=== PATIENT | male | born 1940 | race Caucasian/White ===

== ENCOUNTER 2021-11-15 19:06 | Emergency (ER) | payer BC, OTHER, SELFPAY ==
[2021-11-15] VITALS (11 sets, daily range): BP systolic 128–186; BP diastolic 60–92; PULSE 53–85; RESP 19–20; TEMP 36.8–37.8; O2SAT 91–98; BMI 31.1
--- NOTE | 2021-11-15 19:12 | [facility].EDGENADL ---
ED Disposition Condition on Discharge: Good - Critical Care Critical Care Time: No <Heath Chavarria - Last Filed: 11/15/21 19:31> <Yuniel Ocampo - Last Filed: 11/15/21 23:51> Clinical Impression: Gastroenteritis Disposition: Home, Self-Care Instructions: DI for Diarrhea and Traveler's Diarrhea -- Adult Additional Instructions: fluids and see pcp for follow up Referrals: Provider,Referral, MD [Primary Care Provider] - Attestation: On 11/15/21, the high probability of a clinically significant, sudden or life threatening deterioration of the following system(s) required my full and direct attention, intervention and personal management. The time I documented below is in addition to time spent performing reported procedures but includes the following listed in this critical care notation. Medical Decision Making - Medical Records Medical records reviewed: Yes: I reviewed the patient's medical records. - Dereck Inquiry Pt receiving controlled substance: No - Lab Data Result diagrams: 11/15/21 19:10 <Heath Chavarria - Last Filed: 11/15/21 19:31> - Lab Data Lab results reviewed: Yes: I reviewed the patient's lab results. Result diagrams: 11/15/21 19:10 11/15/21 19:10 <Yuniel Ocampo - Last Filed: 11/15/21 23:51> Vital Signs: 11/15/21 19:06 11/15/21 19:31 11/15/21 20:00 Temperature 100.1 F H Temperature Source Oral Pulse Rate 62 53 L Pulse Rate [Right] 61 Respiratory Rate 20 Blood Pressure 132/74 128/60 Blood Pressure [Right Arm] 186/92 H Blood Pressure Mean [Right Arm] 123 02 Sat by Pulse Oximetry 96 91 L 92 L Oxygen Delivery Method Room Air Room Air 11/15/21 21:00 11/15/21 21:30 11/15/21 22:00 Temperature Temperature Source Pulse Rate 58 L 64 58 L Pulse Rate [Right] Respiratory Rate Blood Pressure 152/72 H 147/70 H 145/64 H Blood Pressure [Right Arm] Blood Pressure Mean [Right Arm] 02 Sat by Pulse Oximetry 95 93 L 95 Oxygen Delivery Method Room Air - Lab Data Lab Results 11/15/21 19:10: WBC 9.7, RBC 5.12, Hgb 15.8, Hct 46.7, MCV 91.3, MCH 30.8, MCHC 33.7, RDW 14.4, Plt Count 178, MPV 9.6, Neut % (Auto) 89.2 H, Lymph % (Auto) 3.0 L, [place] % (Auto) 6.5, Eos % (Auto) 0.9, Baso % (Auto) 0.4, Neut # (Auto) 8.7 H, Lymph # (Auto) 0.3 L, [place] # (Auto) 0.6, Eos # (Auto) 0.1, Baso # (Auto) 0.0, Total Counted 100, Neutrophils % (Manual) 85 H, Lymphocytes % (Manual) 9 L, Monocytes % (Manual) 6, Platelet Estimate Normal, Hypochromasia 2+, Anisocytosis 1+ 11/15/21 19:10: Sodium 136, Potassium 3.6, Chloride 104, Carbon Dioxide 24, Anion Gap 11.6, BUN 21 H, Creatinine 1.60 H, Estimated Creat Clear 55, Estimated GFR 42 L, Est GFR ( Amer) 51 L, Glucose 129 H, Calcium 7.8 L, Total Bilirubin 0.9, AST 52, ALT 30, Alkaline Phosphatase 121, Total Protein 6.7, Albumin 3.9, Globulin 2.8, Albumin/Globulin Ratio 1.4 11/15/21 19:10: SARS-CoV-2 (PCR) Not detected, Influenza A Untype (PCR) Not detected, Influenza Type B (PCR) Not detected 11/15/21 19:10: Troponin I 0.04 H 11/15/21 20:26: Urine Color Yellow, Urine Appearance Clear, Urine pH 5.5, Ur Specific [place] >= 1.030, Urine Protein 1+, Urine Glucose (UA) Negative, Urine Ketones Negative, Urine Blood 2+, Urine Nitrate Negative, Urine Bilirubin Negative, Urine Urobilinogen 0.2, Ur Leukocyte Esterase Negative, Urine RBC 3-5, Urine WBC Occasional, Ur Squamous Epith Cells Occasional, Urine Bacteria None 11/15/21 22:44: Troponin I 0.06 H Orders (Tests/Meds): ED MEDICATIONS Generic Name Dose Route Start Last Admin Trade Name Freq PRN Reason Stop Dose Admin Sodium Chloride 1,000 mls @ 999 mls/hr 11/15/21 19:15 11/15/21 19:37 Sod Chlor 0.9% 1000ml Bag IV 11/15/21 20:15 999 mls/hr .Q1H1M CASEY Administration Sodium Chloride 1,000 mls @ 999 mls/hr 11/15/21 22:15 11/15/21 22:15 Sod Chlor 0.9% 1000ml Bag IV 11/15/21 23:15 999 mls/hr .Q1H1M CASEY Administration Discontinued Medications
[2021-11-15 19:19] LABS: Basophils % 0.4 % (0.1-2.0); Eosinophils # 0.1 K/mm3 (0.0-0.4); Eosinophils % 0.9 % (0.1-12.0); Hematocrit 46.7 % (42.0-52.0); Hemoglobin 15.8 g/dL (14.1-18.0); Lymphocytes # 0.3 K/mm3 (0.7-4.5); Mean Corpuscular HGB Conc 33.7 g/dL (31.8-35.4); Mean Corpuscular Hemoglobin 30.8 pg (27.0-31.2); Mean Corpuscular Volume 91.3 fl (80-94); Mean Platelet Volume 9.6 fl (7.4-10.4); Monocytes # 0.6 K/mm3 (0.1-1.0); Monocytes % 6.5 % (1.7-9.3); Neutrophils # 8.7 K/mm3 (1.8-7.8); Neutrophils % 89.2 % (37.0-80.0); Platelet Count 178 K/mm3 (142-424); Red Blood Count 5.12 M/mm3 (4.60-6.20); Red Cell Distribution Width 14.4 % (11.5-17.5); White Blood Count 9.7 K/mm3 (4.8-10.8)
[2021-11-15 19:27] LABS: MANUAL DIFFERENTIAL MANUAL DIFFERENTIAL (MANUAL DIFF)
[2021-11-15 19:33] LABS: Chloride 104 mmol/L (98-107)
[2021-11-15 19:34] LABS: Potassium 3.6 mmoL/L (3.5-5.1); Sodium 136 mmol/L (136-145)
[2021-11-15 19:36] LABS: Alanine Aminotransferase 30 U/L (12-78); Albumin Level 3.9 g/dl (3.5-5.0); Albumin/Globulin Ratio 1.4 (1.1-1.8); Alkaline Phosphatase 121 U/L (38-126); Aspartate Amino Transferase 52 U/L (17-59); Bilirubin,Total 0.9 mg/dl (0.2-1.3); Blood Urea Nitrogen 21 mg/dl (9-20); Creatinine Clearance Estimated 55 mL/min (50-200); Estimated Glomerular Filt Rate 42 ml/min (>60); GFR (African American) 51 ML/MIN (>60); Globulin 2.8 g/dL (1.3-3.2); Total Protein,Serum 6.7 g/dl (6.3-8.2)
[2021-11-15 19:37] LABS: Anion Gap 11.6 mEq/L (5-15); Calcium 7.8 mg/dl (8.4-10.2); Carbon Dioxide 24 mmol/L (22.0-30.0); Glucose 129 mg/dl (74-100)
[2021-11-15 19:59] LABS: Anisocytosis 1+; Hypochromasia 2+; Lymphocytes % 9 % (10-50); Monocytes % 6 % (2-9); Neutrophils % 85 % (42-76); Platelet Estimate Normal; Total Cells Counted 100
[2021-11-15 20:01] LABS: Coronavirus 19, PCR Not Detected (NotDetected); Influenza A, PCR Not Detected (NotDetected); Influenza B, PCR Not Detected (NotDetected)
[2021-11-15 20:29] LABS: Microscopic, Urine URINE MICROSCOPIC (MICROSCOPIC)
[2021-11-15 20:41] LABS: Troponin I 0.04 ng/ml (0.00-0.034)
--- NOTE | 2021-11-15 20:50 | PC.NURSE ---
Pt able to ambulate to bathroom
[2021-11-15 21:14] LABS: Appearance,Urine CLEAR (Clear); Bilirubin,Urine Negative (Negative); Blood, Urine 2+ (Negative); Color,Urine YELLOW (Yellow); Glucose,Urine (UA) Negative (Negative); Ketones,Urine Negative (Negative); Leukocyte Esterase,Urine Negative (Negative); Nitrate,Urine Negative (Negative); PH,Urine 5.5 (5.0-8.5); Protein,Urine 1+ (Negative); Specific Gravity, Urine >= 1.030 (1.005-1.030); Urobilinogen,Urine 0.2 EU/dl (0.2)
[2021-11-15 21:40] LABS: Squamous Epithelial Cell,Urine Occasional #/hpf (0-5); WBC,Urine Occasional #/hpf (0-3)
--- NOTE | 2021-11-15 22:06 | PC.NURSE ---
patient assisted to bathroom, urine sample collected
--- NOTE | 2021-11-15 22:18 | PC.NURSE ---
PATIENT GIVEN BLANKET, LIGHTS DIMMED.
--- NOTE | 2021-11-15 22:54 | PC.NURSE ---
lab in room to draw blood
[2021-11-15 23:19] LABS: Troponin I 0.06 ng/ml (0.00-0.034)
--- NOTE | 2021-11-15 23:42 | PC.NURSE ---
Phone call to patients friend, he is on his way to pick him up
== END 2021-11-15 23:54 | disposition home or self-care (01) ==
PROVIDERS: Emergency Medicine; Emergency Provider Emergency Medicine
DX: K52.9 Noninfective gastroenteritis and colitis, unspecified (principal)
CPT/HCPCS: 80053; 81001; 84484; 85007; 85025; 96360; 96361; 96365; 96366; 96375; C9803; J2405; U0003; U0005